=== PATIENT | female | born 1965 | race African-American/Black ===

== ENCOUNTER 2020-10-05 04:38 | Day surgery (SDC) | payer OTHER ==
[2020-10-03 12:57] VITALS: BMI 38.9
[2020-10-05] MEDS ORDERED: LIDOCAINE HCL/PF 2% SDV 5ML VIAL ONE (08:56)
[2020-10-05] MEDS ORDERED: PROPOFOL 20 ML ONE ×2 (08:57)
[2020-10-05] MEDS ORDERED: fentaNYL CITRATE 250 MCG/5 ML VIAL ONE (08:57)
[2020-10-05] MEDS ORDERED: SUCCINYLCHOLINE CHLORIDE 200 MG/10 ML SYRINGE ONE (08:57)
[2020-10-05] MEDS ORDERED: MIDAZOLAM HCL 2 MG/2 ML SINGLE DOSE VIAL ONE ×2 (08:57)
[2020-10-05] MEDS ORDERED: BUPIVACAINE HCL/PF 0.5% (5MG/ML) 10 ML VIAL IJ ONE ×2 (09:02)
[2020-10-05] MEDS ORDERED: LIDOCAINE 1%/EPI 1:100000 (50 ML MULTI DOSE VIAL) NR ONE (09:02)
[2020-10-05] MEDS ORDERED: DEXAMETHASONE SOD PHOSPHATE 4 MG/1 ML VIAL ONE (09:25)
[2020-10-05] MEDS ORDERED: SEVOFLURANE 250 ML BTL ONE (09:54)
[2020-10-05] MEDS ORDERED: ONDANSETRON 4 MG/2 ML VIAL IVPUSH PRN (11:00)
[2020-10-05] MEDS ORDERED: LACTATED RINGERS SOLUTION 1,000 ML IV SCH (11:00)
[2020-10-05] MEDS ORDERED: oxyCODONE HCL 5 MG TABLET PO PRN (11:00)
[2020-10-05] MEDS ORDERED: IBUPROFEN 800 MG/8 ML IJ IVPB PRN (11:00)
[2020-10-05] MEDS ORDERED: ACETAMINOPHEN 1000 MG/100 ML VIAL (NON FORMULARY) IVPB ONE ×2 (11:02→11:45)
[2020-10-05 13:31] VITALS: BP 135/79; PULSE 60; TEMP 97
[2020-10-05] MEDS ORDERED: ONDANSETRON 4 MG/2 ML VIAL IVPUSH ONE (13:55)
== END 2020-10-05 16:33 | disposition home or self-care (01) ==
LOC: JASU-SURG 04:38
PROVIDERS: ATTEND Surgery
PROC: 0GTG0ZZ Resection of Left Thyroid Gland Lobe, Open Approach (ICD-10-PCS; principal; 2020-10-05 09:00)
DX: C73 Malignant neoplasm of thyroid gland (principal)
CPT/HCPCS: 88307-TC; 94760; J0131